=== PATIENT | male | born 1995 | race Two or more races ===

== ENCOUNTER 2017-02-19 20:04 | Emergency (ER) | payer SELFPAY ==
[~2017-02-19] VITALS: Ht 172.7 cm; Wt 79.5 kg
[2017-02-19 20:15] VITALS: BP 142/91
== END 2017-02-20 05:00 | disposition home or self-care (01) ==
LOC: ER 02-20 04:39
DX: R51 Headache (principal); R03.0 Elevated blood-pressure reading, without diagnosis of hypertension
CPT/HCPCS: 99283